=== PATIENT | male | born 1960 | race Caucasian/White ===

== ENCOUNTER 2018-08-19 16:45 | Inpatient (IN) | payer MEDICAID ==
[~2018-08-19] VITALS: Ht 177.8 cm; Wt 59.5 kg
--- NOTE | 2018-08-19 17:17 | NUR ---
PT CAME FROM DIALYSIS WITH A CLOT IN HIS DIALYSIS CATHETER. PT GETS DIALYSIS MON AND FRI. HIS LAST DIALYSIS WAS ON WED. DENIES ANY PAIN, SOB. SKIN PINK WARM AND DRY RESPS EVEN AND NON LABORED NO ACUTE DISTRESS. PLACED ON CERTIFIED LOW VISION THERAPIST. CALL GOULD IN REACH.
--- NOTE | 2018-08-19 17:30 | NUR ---
LAB TO BEDSIDE FOR BLOOD DRAW.
[2018-08-19 17:40] LABS: MONOCYTES # (AUTO) 0.5 /CMM (0.1-1.30); PLATELET COUNT (AUTO) 273 /CMM (150-450); WHITE BLOOD COUNT (AUTO) 5.4 K/uL (4.3-11.0)
[2018-08-19 17:44] LABS: BASOPHILS # (AUTO) 0.1 /CMM (0.0-0.2); BASOPHILS % (AUTO) 1.1 % (0.0-2.0); EOSINOPHILS % (AUTO) 4.2 % (0.0-6.0); HEMATOCRIT 37 % (39-51); HEMOGLOBIN 12.2 g/dL (13.5-17.5); LYMPHOCYTES # (AUTO) 1.1 /CMM (0.8-4.8); LYMPHOCYTES % (AUTO) 19.4 % (20.0-44.0); MEAN CORPUSCULAR HGB CONC 33 g/dl (31.0-36.0); MEAN CORPUSCULAR VOLUME 94 fL (80-96); MONOCYTES % (AUTO) 9.6 % (2.0-12.0); NEUTROPHILS # (AUTO) 3.5 /CMM (1.8-8.9); NEUTROPHILS % (AUTO) 65.7 % (43.0-81.0); RDW COEFFICIENT OF VARIATION 13.8 (11.5-15.0); RED BLOOD CELL COUNT(AUTO) 3.92 MIL/uL (4.5-6.0)
[2018-08-19 17:49] LABS: CALCIUM, SERUM 8.1 mg/dL (8.5-10.1); CREATININE 5.6 mg/dL (0.6-1.3)
[2018-08-19 17:54] LABS: INR 0.97 (0.85-1.15)
--- NOTE | 2018-08-19 17:55 | NUR ---
IV ATTEMPT X2 UNSUCCESSFUL. GENER RN TO BEDSIDE FOR IV START
[2018-08-19] MEDS ORDERED: AMLO5TAB7 PO (18:03)
[2018-08-19] MEDS ORDERED: TRAM50TA2 PO (18:03)
[2018-08-19] MEDS ORDERED: HYDR-4077 PO (18:03)
[2018-08-19] MEDS ORDERED: VENL37.55 PO (18:03)
[2018-08-19] MEDS ORDERED: DOCU-141 PO (18:03)
[2018-08-19] MEDS ORDERED: SEVE800T7 PO (18:03)
[2018-08-19] MEDS ORDERED: GABA-534 PO (18:03)
[2018-08-19] MEDS ORDERED: ATOR40TA PO (18:03)
[2018-08-19] MEDS ORDERED: ASPI-1152 PO (18:03)
[2018-08-19] MEDS ORDERED: VENL37.510 PO (18:03)
[2018-08-19] MEDS ORDERED: SENN-167 PO (18:03)
[2018-08-19] MEDS ORDERED: CARV12.52 PO (18:03)
[2018-08-19] MEDS ORDERED: PANT40TA2 PO (18:03)
[2018-08-19] MEDS ORDERED: INSU100V7 SQ (18:11)
--- NOTE | 2018-08-19 18:24 | NUR ---
MD AWARE OF PT DIFFICULT IV ACCESS. PER MD NO IV ACCESS REQUIRED AT THIS TIME.
--- NOTE | 2018-08-19 18:24 | NUR ---
DR. MSOHE NYE.
--- NOTE | 2018-08-19 19:35 | NUR ---
SPOKE TO DR. KENDALL MESA WITH ADDITIONAL ORDERS RECEIVED. AWAITING BED AVAILABILITY FOR PT ADMISSION.
--- NOTE | 2018-08-19 20:47 | NUR ---
PT ASSIGNED TO 325-1
--- NOTE | 2018-08-19 21:03 | NUR ---
REPORT CALLED TO M/S CHARISSE CASTANEDA. WILL TRANSPORT PT TO ROOM 325-1.
[2018-08-19 21:30] VITALS: BP 129/94
[2018-08-19 21:38] VITALS: BP 129/94
[2018-08-19] MEDS ORDERED: TRAMADOL HCL 50 MG TABLET PO PRN (23:00)
[2018-08-19] MEDS: CARVEDILOL 12.5 MG TABLET PO SCH (23:50)
[2018-08-19] MEDS: ATORVASTATIN 40 MG TABLET PO SCH (23:51)
[2018-08-19] MEDS: SEVELAMER CARBONATE 800 MG TABLET PO SCH (23:51)
[2018-08-19] MEDS: hydrALAZINE HCL 25 MG TABLET PO SCH (23:52)
[2018-08-19] MEDS: INSULIN GLARGINE, 100 UNIT/ML CARTRIDGE SQ SCH (23:56)
[2018-08-20] VITALS (13 sets, daily range): BP systolic 100–132; BP diastolic 67–89
[2018-08-20] MEDS: hydrALAZINE HCL 25 MG TABLET PO SCH ×3 (05:00→22:15)
--- NOTE | 2018-08-20 05:40 | NUR ---
ENDING NOTES AWAKE AND ALERT NO C/O THIS 12 HOURS. AV SHUNT LEFT UPPER ARM PALPABLE THRILL AUDIBLE THRILL RIGHT C/W DRESSING AV SHUNT CDI. [facility]
--- NOTE | 2018-08-20 07:56 | NUR ---
MS RN NOTES PATIENT RECEIVED RESTING INSIDE ROOM. SLEEPING, EASILY AROUSABLE THROUGH VERBAL AND TACTILE STIMULI. BREATHING EVEN AND UNLABORED. NO SOB OR ACUTE DISTRESS NOTED. DENIES ANY PAIN OR DISCOMFORT. IV INTACT AND PATENT. PATIENT NPO STATUS, AWARE AND VERBALIZED UNDERSTANDING. WILL CONTINUE TO MONITOR. BED LOCKED AND IN LOW POSITION. BILATERAL UPPER SIDE RAILS UP AND LOCKED. CALL LIGHT WITHIN EASY REACH
[2018-08-20] MEDS: CARVEDILOL 12.5 MG TABLET PO SCH ×2 (08:00→18:00)
[2018-08-20] MEDS: SEVELAMER CARBONATE 800 MG TABLET PO SCH ×3 (08:00→18:02)
[2018-08-20] MEDS ORDERED: TRAMADOL HCL 50 MG TABLET PO PRN (08:30)
[2018-08-20] MEDS: PANTOPRAZOLE 40 MG TABLET.DR PO SCH (08:30)
[2018-08-20] MEDS ORDERED: CARVEDILOL 12.5 MG TABLET PO SCH (09:00)
[2018-08-20] MEDS: AMLODIPINE BESYLATE 5 MG TABLET PO SCH (09:00)
[2018-08-20] MEDS: GABAPENTIN 300 MG CAPSULE PO SCH ×3 (09:00→18:02)
[2018-08-20] MEDS: DOCUSATE SODIUM 100 MG CAPSULE PO SCH (09:00)
[2018-08-20] MEDS: VENLAFAXINE XR 37.5 MG CAP.SR.24H PO SCH (09:00)
[2018-08-20] MEDS: ASPIRIN EC 81 MG TABLET.DR PO SCH (09:00)
[2018-08-20] MEDS ORDERED: IV D5/ 0.9% NACL 1,000 ML IV PRN (11:30)
[2018-08-20] MEDS ORDERED: INSULIN REGULAR, HUMAN 100 UNIT/ML 3 ML VIAL SQ PRN (11:30)
[2018-08-20] MEDS ORDERED: DEXTROSE 50%-WATER 50 ML DISP.SYRIN IV PRN (11:30)
[2018-08-20] MEDS ORDERED: HYDROCODONE/APAP 5/325MG 1 EACH TABLET PO PRN (11:30)
[2018-08-20 11:36] LABS: CALCIUM, SERUM 8.6 mg/dL (8.5-10.1); CREATININE 5.8 mg/dL (0.6-1.3)
[2018-08-20 11:49] LABS: BASOPHILS # (AUTO) 0.1 /CMM (0.0-0.2); BASOPHILS % (AUTO) 1.6 % (0.0-2.0); EOSINOPHILS % (AUTO) 4.2 % (0.0-6.0); HEMATOCRIT 35 % (39-51); HEMOGLOBIN 11.3 g/dL (13.5-17.5); LYMPHOCYTES % (AUTO) 18.1 % (20.0-44.0); MEAN CORPUSCULAR HGB CONC 33 g/dl (31.0-36.0); MEAN CORPUSCULAR VOLUME 95 fL (80-96); MONOCYTES # (AUTO) 0.5 /CMM (0.1-1.30); MONOCYTES % (AUTO) 9.3 % (2.0-12.0); NEUTROPHILS # (AUTO) 3.6 /CMM (1.8-8.9); NEUTROPHILS % (AUTO) 66.8 % (43.0-81.0); PLATELET COUNT (AUTO) 260 /CMM (150-450); RDW COEFFICIENT OF VARIATION 14.7 (11.5-15.0); RED BLOOD CELL COUNT(AUTO) 3.65 MIL/uL (4.5-6.0); WHITE BLOOD COUNT (AUTO) 5.3 K/uL (4.3-11.0)
[2018-08-20 11:59] LABS: INR 1.03 (0.87-1.13)
[2018-08-20] MEDS: BLOOD SUGAR DIAGNOSTIC 1 EACH STRIP IN SCH ×3 (12:33→22:29)
[2018-08-20] MEDS ORDERED: LIDOCAINE 1% INJ 50 ML MDV IJ ONE (12:34)
[2018-08-20] MEDS ORDERED: HEPARIN SODIUM, PORCINE 1,000 UNIT/ML VIAL ONE (12:34)
[2018-08-20] MEDS ORDERED: ANESTHESIA TRAY IN PYXIS 1 EA TRAY MC ONE (12:35)
[2018-08-20] MEDS ORDERED: FENTANYL PF 100MCG/2ML AMPUL ONE (12:45)
[2018-08-20] MEDS ORDERED: METOCLOPRAMIDE HCL 10 MG/2 ML VIAL ONE (12:46)
[2018-08-20] MEDS ORDERED: SUCCINYLCHOLINE CHLORIDE 20 MG/ML VIAL ONE (12:46)
[2018-08-20] MEDS ORDERED: hydrALAZINE HCL 50 MG TABLET PO SCH (13:00)
[2018-08-20] MEDS ORDERED: SEVELAMER CARBONATE 800 MG TABLET PO SCH (13:00)
--- NOTE | 2018-08-20 15:20 | NUR ---
MS RN NOTES PATIENT BACK FROM SURGERY. S/P PERMACATH REPLACEMENT ON RIGHT CHEST WALL BY DR. PRINGLE. WITH NEW ORDERS TO START RENAL DIET. PATIENT ALERT AND ORIENTED. VERBALLY RESPONSIVE AND RESPONDS TO VERBAL AND TACTILE STIMULI. IV INTACT AND PATENT. VERBALIZES UNDERSTANDING WITH TREATMENT PLAN AND MEDICATION REGIME. WILL CONTINUE TO MONITOR
--- NOTE | 2018-08-20 17:30 | NUR ---
MS RN NOTES D5NS IVF DISCONTINUED PER DR. KENDALL MESA ORDER TO DC IVF AFTER PERMACATH REPLACEMENT. PATIENT ABLE TO TOLERATE PO FOOD AND LIQUIDS. WILL CONTINUE TO MONITOR
[2018-08-20] MEDS ORDERED: SENNOSIDES 8.6 MG TABLET PO SCH (18:00)
[2018-08-20] MEDS ORDERED: ATORVASTATIN 40 MG TABLET PO SCH (18:00)
--- NOTE | 2018-08-20 18:15 | NUR ---
MS RN NOTES PATIENT FOR HD TODAY PER DR. KENDALL MESA. CARVEDILOL HELD. WILL CONTINUE TO MONITOR
--- NOTE | 2018-08-20 18:49 | NUR ---
MS RN NOTES PATIENT RESTING INSIDE ROOM. AWAKE, ALERT AND ORIENTED. VERBALLY RESPONSIVE AND RESPONDS TO VERBAL AND TACTILE STIMULI. BREATHING EVEN AND UNLABORED. NO SOB OR ACUTE DISTRESS NOTED. NO CHANGES IN LOC NOTED. PATIENT DENIES ANY PAIN OR DISCOMFORT. RCW PERMACATH IN PLACE. DRESSING INTACT. AWAITING FOR HD THIS PM. WILL ENDORSE TO INCOMING SHIFT FOR CHAVA. BED LOCKED AND IN LOW POSITION. BILATERAL UPPER SIDE RAILS UP AND LOCKED. CALL LIGHT WITHIN EASY REACH
--- NOTE | 2018-08-20 19:15 | NUR ---
RN OPENING NOTES PT AWAKE AND ALERT RESTING IN BED. PT CURRENTLY UNDERGOING HD. DIALYSIS NURSE AT BED SIDE. NO COMPLAINTS OF PAIN, SOB OR DISTRESS AT THIS TIME. S/P RIGHT CHEST WALL PERMACATH REPLACEMENT TODAY. PT HAS A RIGHT HAND #20 IV INTACT AND PATENT. SAFETY PRECAUTIONS IN PLACE, BED IN LOWEST LOCKED POSITION, X2 SIDE RAILS UP AND CALL LIGHT WITHIN REACH. WILL CONTINUE TO MONITOR.
[2018-08-20] MEDS ORDERED: INSULIN GLARGINE HUM REC ANLOG 8 UNIT SQ SCH (22:00)
[2018-08-20] MEDS: ATORVASTATIN 40 MG TABLET PO SCH (22:28)
[2018-08-20] MEDS: INSULIN GLARGINE, 100 UNIT/ML CARTRIDGE SQ SCH (22:29)
--- NOTE | 2018-08-20 22:30 | NUR ---
RN NOTES PT HD COMPLETE AT 2205. VITAL SIGNS WITHIN NORMAL LIMITS PT REFUSED APRESOLINE EXPLAINED TO THE PATIENT THE IMPORTANCE OF MEDICATION COMPLIANCE. PT STATED THAT THE DOES NOT WANT TO TAKE HEART MEDICATION AFTER DIALYSIS. PT BLOOD SUGAR 100. HELD 8 UNITS OF LANTUS.
--- NOTE | 2018-08-20 23:34 | NUR ---
RN NOTES REPORT GIVEN FOR CONTINUITY OF CARE.
[2018-08-21] MEDS: hydrALAZINE HCL 25 MG TABLET PO SCH ×2 (05:00→12:09)
--- NOTE | 2018-08-21 05:31 | NUR ---
PT REFUSED SCHEDULED HYDRALAZINE . BP IS 135/90. WILL CONTINUE TO MONITOR
[2018-08-21] MEDS: BLOOD SUGAR DIAGNOSTIC 1 EACH STRIP IN SCH ×2 (06:29→12:08)
--- NOTE | 2018-08-21 06:57 | NUR ---
MS RN CLOSING NOTES PT AWAKE AND ALERT RESTING IN BED. NO COMPLAINTS OF PAIN, SOB OR DISTRESS AT THIS TIME. S/P RIGHT CHEST WALL PERMACATH REPLACEMENT YESTERDAY. PT HAS A RIGHT HAND #20 IV INTACT AND PATENT. SAFETY PRECAUTIONS IN PLACE, BED IN LOWEST LOCKED POSITION, X2 SIDE RAILS UP AND CALL LIGHT WITHIN REACH.WILL ENDORSE TO NEXT SHIFT FOR CHAVA.
--- NOTE | 2018-08-21 07:47 | NUR ---
MS RN NOTES PATIENT RECEIVED RESTING INSIDE ROOM. AWAKE, ALERT AND ORIENTED. VERBALLY RESPONSIVE AND RESPONDS TO VERBAL AND TACTILE STIMULI. BREATHING EVEN AND UNLABORED. NO SOB OR ACUTE DISTRESS NOTED AT THIS TIME. PATIENT CALM AND RELAXED. DENIES ANY PAIN OR DISCOMFORT. WILL CONTINUE TO MONITOR. BED LOCKED AND IN LOW POSITION. BILATERAL UPPER SIDE RAILS UP AND LOCKED. CALL LIGHT WITHIN EASY REACH
[2018-08-21 08:00] VITALS: BP 111/74
[2018-08-21] MEDS: CARVEDILOL 12.5 MG TABLET PO SCH (08:00)
--- NOTE | 2018-08-21 08:30 | NUR ---
MS RN NOTES NOTED WITH DRY BLOOD RESIDUE ON RIGHT CHEST WALL PERMACATH. DIALYSIS NURSE CRISSY PRESENT AT UNIT AND MADE AWARE, DRESSING CHANGED BY LUMBER SORTER MACHINE. NO ACTIVE BLEEDING NOTED. DRESSING SECURE. WILL CONTINUE TO MONITOR
[2018-08-21] MEDS: ASPIRIN EC 81 MG TABLET.DR PO SCH (08:36)
[2018-08-21] MEDS: VENLAFAXINE XR 37.5 MG CAP.SR.24H PO SCH (08:36)
[2018-08-21] MEDS: GABAPENTIN 300 MG CAPSULE PO SCH ×2 (08:36→12:09)
[2018-08-21] MEDS: SEVELAMER CARBONATE 800 MG TABLET PO SCH ×2 (08:36→12:09)
[2018-08-21] MEDS: DOCUSATE SODIUM 100 MG CAPSULE PO SCH (08:36)
[2018-08-21] MEDS: PANTOPRAZOLE 40 MG TABLET.DR PO SCH (08:36)
[2018-08-21] MEDS: AMLODIPINE BESYLATE 5 MG TABLET PO SCH (08:37)
[2018-08-21 09:38] LABS: BASOPHILS # (AUTO) 0.1 /CMM (0.0-0.2); BASOPHILS % (AUTO) 0.9 % (0.0-2.0); EOSINOPHILS % (AUTO) 2.9 % (0.0-6.0); HEMATOCRIT 38 % (39-51); HEMOGLOBIN 12.3 g/dL (13.5-17.5); LYMPHOCYTES # (AUTO) 0.8 /CMM (0.8-4.8); LYMPHOCYTES % (AUTO) 11.7 % (20.0-44.0); MEAN CORPUSCULAR HGB CONC 33 g/dl (31.0-36.0); MEAN CORPUSCULAR VOLUME 95 fL (80-96); MONOCYTES # (AUTO) 0.5 /CMM (0.1-1.30); NEUTROPHILS # (AUTO) 4.9 /CMM (1.8-8.9); NEUTROPHILS % (AUTO) 76.5 % (43.0-81.0); PLATELET COUNT (AUTO) 228 /CMM (150-450); RDW COEFFICIENT OF VARIATION 14.6 (11.5-15.0); RED BLOOD CELL COUNT(AUTO) 3.98 MIL/uL (4.5-6.0); WHITE BLOOD COUNT (AUTO) 6.4 K/uL (4.3-11.0)
[2018-08-21 09:53] LABS: CALCIUM, SERUM 8.6 mg/dL (8.5-10.1); CREATININE 4.2 mg/dL (0.6-1.3); MAGNESIUM 1.9 mg/dL (1.8-2.4); PHOSPHORUS 3.9 mg/dL (2.5-4.9)
[2018-08-21 12:09] VITALS: BP 125/70
--- NOTE | 2018-08-21 13:32 | NUR ---
MS RN NOTES PATIENT FOR DISCHARGE HOME TODAY. DISCHARGE INSTRUCTIONS AND EDUCATION PROVIDED TO PATIENT AND VERBALIZED UNDERSTANDING. ALL BELONGING COMPLETE ON DISCHARGE, NO REPORT OF MISSING INVENTORY. IV REMOVED WITH MINIMAL BLEEDING NOTED. PATIENT LEFT UNIT AT 1330 BY PERSONAL WHEELCHAIR. ACCOMPANIED BY SIGNIFICANT OTHER. ASSISTED WITH DISCHARGE TO PARKING LOT AND OUT OF HOSPITAL. PATIENT LEFT IN STABLE CONDITION. NO SOB OR ACUTE DISTRESS. NO CHANGES IN LOC NOTED. MD MADE AWARE OF DISCHARGE.
== END 2018-08-21 13:30 | disposition home or self-care (01) | DRG 466 ==
LOC: ER 16:49 → MED 21:32
PROVIDERS: ADMIT Internal Medicine Nephrology; ATTEND Internal Medicine Nephrology
PROC: 0J2SXYZ Change Other Device in Head and Neck Subcutaneous Tissue and Fascia, External Approach (ICD-10-PCS; principal; 2018-08-19)
DX: T82.41XA Breakdown (mechanical) of vascular dialysis catheter, initial encounter (principal); I12.0 Hypertensive chronic kidney disease with stage 5 chronic kidney disease or end stage renal disease; E11.22 Type 2 diabetes mellitus with diabetic chronic kidney disease; N18.6 End stage renal disease; Z99.2 Dependence on renal dialysis; Z89.612 Acquired absence of left leg above knee; Z89.411 Acquired absence of right great toe; D64.9 Anemia, unspecified
CPT/HCPCS: 36415; 71045-TC; 80048-TC; 82962-TC; 83735-TC; 84100-TC; 85025-TC; 85610-TC; 85730-TC; 87081-TC; 90935-TC; A4606; A6402; C1750; C1769; J0330; J1644; J1815; J2405; J2704; J2765; J3010; J3490; J7042; Z7610

== ENCOUNTER 2019-02-20 16:00 | Inpatient (IN) | payer MEDICAID ==
[~2019-02-20] VITALS: Ht 160 cm; Wt 59.9 kg
[~2019-02-20 16:00] MED LIST: AMLO5TAB9 PO; ASPI-1152 PO; ATOR40TA PO; CARV12.52 PO; DOCU-141 PO; GABA-534 PO; HYDR-4077 PO; INSU100V7 SQ; PANT40TA2 PO; SENN-168 PO; SEVE800T7 PO; TRAM50TA2 PO; VENL37.55 PO
[2019-02-20] MEDS ORDERED: NITROGLYCERIN 0.4 MG/TAB BOTTLE ONE (16:28)
[2019-02-20] MEDS ORDERED: ASPIRIN 325 MG TABLET ONE (16:28)
[2019-02-20] MEDS ORDERED: NITROGLYCERIN 0.4 MG/TAB BOTTLE SL ONE (16:30)
[2019-02-20] MEDS ORDERED: ASPIRIN 325 MG TABLET PO ONE (16:30)
[2019-02-20 16:33] LABS: BASOPHILS # (AUTO) 0.1 /CMM (0.0-0.2); BASOPHILS % (AUTO) 1.5 % (0.0-2.0); EOSINOPHILS % (AUTO) 2.5 % (0.0-6.0); HEMATOCRIT 36 % (39-51); HEMOGLOBIN 11.7 g/dL (13.5-17.5); LYMPHOCYTES % (AUTO) 17.5 % (20.0-44.0); MEAN CORPUSCULAR HGB CONC 32 g/dl (31.0-36.0); MEAN CORPUSCULAR VOLUME 104 fL (80-96); MONOCYTES # (AUTO) 0.7 /CMM (0.1-1.30); MONOCYTES % (AUTO) 11.3 % (2.0-12.0); NEUTROPHILS # (AUTO) 3.9 /CMM (1.8-8.9); NEUTROPHILS % (AUTO) 67.2 % (43.0-81.0); PLATELET COUNT (AUTO) 129 /CMM (150-450); RED BLOOD CELL COUNT(AUTO) 3.51 MIL/uL (4.5-6.0); WHITE BLOOD COUNT (AUTO) 5.8 K/uL (4.3-11.0)
[2019-02-20 16:43] LABS: CALCIUM, SERUM 8.8 mg/dL (8.5-10.1); CREATININE 4.1 mg/dL (0.6-1.3); POTASSIUM 4.2 mmol/L (3.5-5.1)
[2019-02-20 16:58] LABS: BILIRUBIN,DIRECT 0.7 mg/dL (0.0-0.2); BILIRUBIN,TOTAL 1.2 mg/dL (0.2-1.0); TOTAL PROTEIN, SERUM 7.5 g/dL (6.4-8.2)
--- NOTE | 2019-02-20 17:02 | NUR ---
YURI FROM [facility], SENT BY MD AFTER DIALYSIS FOR SOB, BELOW L KNEE AMPUTEE, RIGHT CHESTDIALYSIS PORT
--- NOTE | 2019-02-20 17:51 | NUR ---
CALLED [facility] [phone] MARY MOFFETT. CONSTRUCTION ECONOMIST IS DR. PULIDO.
--- NOTE | 2019-02-20 18:27 | NUR ---
GOT BED 320-1 THANK YOU.
--- NOTE | 2019-02-20 18:40 | NUR ---
REPORT GIVEN TO KELLI MCQUEEN. PT AWAITING TRANSFER TO FLOOR.
[2019-02-20 20:00] VITALS: BP 123/52
--- NOTE | 2019-02-20 23:37 | NUR ---
SENIOR SUPPORT ANALYST OPENING NOTES RECEIVED PT IN BED, AWAKE ALERT ORIENTEDX3, BREATHING EVEN AND UNLABORED ON ROOM AIR, NO SOB COUGH OR CONGESTION AT THE MOMENT. REPORTS CHEST PAIN AT A 1/10, NO OTHER COMPLAINT OF PAIN OR DISCOMFORT AT THE TIME. IV ACCESS ON THE R AC 20G SL PATENT AND FLUSHING. LEFT SUBCLAVIAN HD CATH IN PLACE. PRINTING PRESSMAN IN PLACE, SR IN THE 80S. BED IN LOWEST LOCKED POSITION, CALL LIGHT WITHIN REACH AT ALL TIMES, WILL CONTINUE TO MONITOR FREQUENTLY
[2019-02-21] VITALS (7 sets, daily range): BP systolic 123–131; BP diastolic 73–82
[2019-02-21] MEDS: hydrALAZINE HCL 50 MG TABLET PO SCH ×3 (04:35→20:20)
[2019-02-21] MEDS: TRAMADOL HCL 50 MG TABLET PO PRN (04:35)
--- NOTE | 2019-02-21 06:07 | NUR ---
FURNITURE ASSEMBLER AND INSTALLER CLOSING NOTES PT REMAINS IN BED, AWAKE ALERT ORIENTED X4, COMPLAINING OF DISCOMFORT WITH BREATHING, NO CHEST PAIN, SATING AT 98 ON ROOM AIR, REFUSING NC, REPOSITIONED FOR COMFORT. MH TEACHER IN PLACE, SR 80S. IV ACCESS ON THE R AC 20G SL PATENT AND FLUSHING. BED IN LOWEST LOCKED POSITION, CALL LIGHT WITHIN REACH AT ALL TIMES, WILL ENDORSE TO DAY NURSE FOR CHAVA
[2019-02-21 06:13] LABS: BASOPHILS # (AUTO) 0.1 /CMM (0.0-0.2); BASOPHILS % (AUTO) 1.5 % (0.0-2.0); EOSINOPHILS % (AUTO) 2.9 % (0.0-6.0); HEMATOCRIT 36 % (39-51); HEMOGLOBIN 11.6 g/dL (13.5-17.5); LYMPHOCYTES # (AUTO) 0.9 /CMM (0.8-4.8); LYMPHOCYTES % (AUTO) 17.1 % (20.0-44.0); MEAN CORPUSCULAR HGB CONC 32 g/dl (31.0-36.0); MEAN CORPUSCULAR VOLUME 103 fL (80-96); MONOCYTES # (AUTO) 0.6 /CMM (0.1-1.30); MONOCYTES % (AUTO) 11.2 % (2.0-12.0); NEUTROPHILS # (AUTO) 3.4 /CMM (1.8-8.9); NEUTROPHILS % (AUTO) 67.3 % (43.0-81.0); PLATELET COUNT (AUTO) 124 /CMM (150-450); RED BLOOD CELL COUNT(AUTO) 3.47 MIL/uL (4.5-6.0)
[2019-02-21 06:55] LABS: CREATININE 4.8 mg/dL (0.6-1.3); POTASSIUM 5.3 mmol/L (3.5-5.1)
[2019-02-21] MEDS: BLOOD SUGAR DIAGNOSTIC 1 EACH STRIP IN SCH ×4 (06:56→21:26)
--- NOTE | 2019-02-21 07:33 | NUR ---
HD AT BEDSIDE
[2019-02-21] MEDS: PANTOPRAZOLE 40 MG TABLET.DR PO SCH (08:24)
[2019-02-21] MEDS: DOCUSATE SODIUM 100 MG CAPSULE PO SCH (08:25)
[2019-02-21] MEDS: VENLAFAXINE XR 37.5 MG CAP.SR.24H PO SCH (08:25)
[2019-02-21] MEDS: CARVEDILOL 12.5 MG TABLET PO SCH ×2 (08:25→21:00)
[2019-02-21] MEDS: GABAPENTIN 300 MG CAPSULE PO SCH ×3 (08:25→17:39)
[2019-02-21] MEDS: ASPIRIN EC 81 MG TABLET.DR PO SCH (08:25)
[2019-02-21] MEDS: AMLODIPINE BESYLATE 5 MG TABLET PO SCH (08:26)
[2019-02-21] MEDS: SEVELAMER CARBONATE 800 MG TABLET PO SCH ×3 (08:26→17:39)
--- NOTE | 2019-02-21 08:27 | NUR ---
HD OUTPUT 2000 ML. PT A/O X3 , EATING BREAKFAST. VS ARE STABLE AND WITHIN NORMAL RANGE.
--- NOTE | 2019-02-21 09:52 | NUR ---
THORACENTESIS AT BEDSIDE .
--- NOTE | 2019-02-21 10:21 | NUR ---
PLURAL FLUID 1550 ML. AFTER THORACENTESIS
[2019-02-21 10:58] LABS: CHOLESTEROL 105 mg/dL (<200); HDL CHOLESTEROL 37 mg/dL (40-60); LDL 57 mg/dL (0-99); TRIGLYCERIDES 90 mg/dL (30-150)
--- NOTE | 2019-02-21 11:44 | NUR ---
PATIENT REFUSED ACCU-CHEK : RISKS AND BENEFITS EXPLAINED
[2019-02-21] MEDS: SENNOSIDES 8.6 MG TABLET PO SCH (17:39)
[2019-02-21] MEDS ORDERED: ATORVASTATIN 40 MG TABLET PO SCH (18:00)
--- NOTE | 2019-02-21 18:53 | NUR ---
PATIENT RESTING IN BED, BREATHING UNLABORED AND EVEN ,ON ROOM AIR TOLERATING WELL. ALL NEEDS ATTENDED, PT KEPT CLEAN AND DRY.IV H/L TO R AC [address] G[address] IN PL[address] , CALL LIGHT IN PLACE.
--- NOTE | 2019-02-21 19:30 | NUR ---
MS/RN OPENING NOTES PT RECEIVED RESTING COMFORTABLY IN BED. OPENS EYES TO NAME. ON ROOM AIR, BREATHING EVEN AND UNLABORED. DENIES SOB AND PAIN AT THIS TIME. HD CATH NOTED TO LCW WITH DRESSING C/D/I. IV TO RAC PATENT AND INTACT. NO NEEDS EXPRESSED AT THIS TIME. BED IN LOW/LOCKED POSITION WITH CALL LIGHT IN REACH. BILATERAL UPPER SIDE RAILS IN PLACE AND HOB ELEVATED. WILL CONTINUE TO MONITOR
[2019-02-21] MEDS: INSULIN GLARGINE, 100 UNIT/ML CARTRIDGE SQ SCH (21:30)
--- NOTE | 2019-02-21 21:33 | NUR ---
MS/RN NOTES PT REFUSED SCHEDULED COREG AND LANTUS. PT STATES HE DOESNT HAVE MUCH OF AN APPETITE AND REFUSING SNACKS AT THIS TIME. EXPLAINED RISKS/BENEFITS OF BOTH MEDICATIONS X3 AND PT STILL REFUSING. HE "JUST WANTS TO SLEEP". BP= 115/77, HR 73 BGL= 145
--- NOTE | 2019-02-22 | NUR ---
MS/RN NOTES PT ROUNDING DONE. PT ASLEEP, BREATHING EVEN AND UNLABORED. NO S/S OF ACUTE DISTRESS.
[2019-02-22] MEDS: hydrALAZINE HCL 50 MG TABLET PO SCH (05:00)
--- NOTE | 2019-02-22 06:01 | NUR ---
MS/RN NOTES HELD 0500 . BP 107/65, HR 74 PT SCHEDULED FOR HEMODIALYSIS THIS MORNING.
[2019-02-22] MEDS: PANTOPRAZOLE 40 MG TABLET.DR PO SCH (06:56)
[2019-02-22] MEDS: BLOOD SUGAR DIAGNOSTIC 1 EACH STRIP IN SCH ×4 (06:56→21:04)
--- NOTE | 2019-02-22 07:10 | NUR ---
MS/RN CLOSING NOTES PT RESTING COMFORTABLY IN BED. OPENS EYES TO NAME. ON ROOM AIR, BREATHING EVEN AND UNLABORED. DENIES SOB AND PAIN AT THIS TIME. IV TO RAC PATENT AND INTACT. LEFT HD CATH IN PLACE WITH DRESSING C/D/I. PLAN FOR HD AT 0800 PER HD NURSE. NO SIGNIFICANT CHANGES OVERNIGHT. SLEPT WELL. ALL NEEDS MET. BED REMAINS IN LOW/LOCKED POSITION WITH CALL LIGHT IN REACH. HOB ELEVATED. BILATERAL UPPER SIDE RAILS IN PLACE. ENDORSED TO DAY SHIFT RN CHAVA.
--- NOTE | 2019-02-22 07:44 | NUR ---
MS RN OPENING NOTES RECEIVE PT IN BED, AWAKE, A/O X2-3. PT TOLERATING RA, WITH NO ACUTE RESPIRATORY DISTRESS. PT DENIES PAIN. PT ALSO DENIES ANY QUESTIONS OR CONCERNS AT THIS MOMENT. PIV TO RAC G20 SL, FLUSHED WITH NS, INTACT AND OPERATIONAL. HD CATH TO LEFT CHEST NOTED WELL, AND SCHEDULED DIALYSIS TO START AT 0800 TODAY. HOB ELEVATED. KEPT CALL LIGHT AND FLUID WITHIN REACH. WILL CONTINUE TO MONITOR.
[2019-02-22 08:00] VITALS: BP 119/61
[2019-02-22] MEDS: SEVELAMER CARBONATE 800 MG TABLET PO SCH ×3 (08:00→18:08)
[2019-02-22] MEDS: TRAMADOL HCL 50 MG TABLET PO PRN (08:22)
[2019-02-22] MEDS: VENLAFAXINE XR 37.5 MG CAP.SR.24H PO SCH (09:00)
[2019-02-22] MEDS: CARVEDILOL 12.5 MG TABLET PO SCH ×2 (09:00→21:03)
[2019-02-22] MEDS: AMLODIPINE BESYLATE 5 MG TABLET PO SCH (09:00)
[2019-02-22] MEDS: DOCUSATE SODIUM 100 MG CAPSULE PO SCH (09:00)
[2019-02-22] MEDS: ASPIRIN EC 81 MG TABLET.DR PO SCH (09:01)
[2019-02-22] MEDS: GABAPENTIN 300 MG CAPSULE PO SCH ×3 (09:01→16:15)
--- NOTE | 2019-02-22 11:00 | NUR ---
MS RN NOTES PT HAD HD STARTED 08 AND ENDED 0. VS 102/78, HR 75, O2 SATURATION OF 99% AND OUTPUT OF 1000ML PER DIALYSIS NURSE. WILL CONTINUE TO MONITOR.
[2019-02-22 16:00] VITALS: BP 97/65
[2019-02-22] MEDS: SENNOSIDES 8.6 MG TABLET PO SCH (18:08)
--- NOTE | 2019-02-22 19:18 | NUR ---
MS RN CLOSING NOTES PT REMAINS IN BED, AWAKE, A/O X2-3. PT TOLERATING RA, WITH NO ACUTE RESPIRATORY DISTRESS. PT DENIES PAIN. PIV TO RAC G20 SL, FLUSHED WITH NS, INTACT AND OPERATIONAL. HD CATH TO LEFT CHEST NOTED; HD WAS DONE THIS MORNING WITH OUTPUT OF 1000ML. HOB ELEVATED. KEPT CALL LIGHT AND FLUID WITHIN REACH.PT'S BED KEPT IN LOWEST, LOCKED POSITION WITH SR X2. ENDORSED TO CHARGE MACHINE OPERATOR NURSE FOR CHAVA.
[2019-02-22 20:00] VITALS: BP 127/62
[2019-02-22] MEDS: INSULIN GLARGINE, 100 UNIT/ML CARTRIDGE SQ SCH (21:33)
[2019-02-23] MEDS: BLOOD SUGAR DIAGNOSTIC 1 EACH STRIP IN SCH ×4 (06:05→22:07)
--- NOTE | 2019-02-23 06:28 | NUR ---
MS RN NOTES AWAKE & RESPONSIVE. NOT IN ANY DISTRESS. NO SOB NOTED. DENIES ANY PAIN OR DISCOMFORT AT THIS TIME. WITH IV-HL PATENT & INTACT. AM CARE DONE. MONITORED ACCORDINGLY. CALL LIGHT WITHIN REACH. BED IN LOWEST POSITION. SR UP X2 FOR SAFETY. WILL ENDORSE TO NEXT SHIFT.
--- NOTE | 2019-02-23 07:35 | NUR ---
MS RN OPENING NOTES RECEIVED PT IN BED, INTERMITTENTLY DOZING OFF, A/O X2-3. PT TOLERATING RA, WITH NO ACUTE RESPIRATORY DISTRESS. PT DENIES PAIN. PT ALSO DENIES ANY QUESTIONS OR CONCERNS AT THIS MOMENT. PIV TO RAC G20 SL, FLUSHED WITH NS, INTACT AND OPERATIONAL. HD CATH TO LEFT CHEST NOTED WELL, AND ON GOING HD AT THIS MOMENT. HOB ELEVATED. KEPT CALL LIGHT WITHIN REACH. PT'S BED KEPT IN LOWEST, LOCKED POSITION WITH SR X2. WILL CONTINUE PLAN OF CARE.
[2019-02-23 08:00] VITALS: BP 160/79
[2019-02-23 08:58] LABS: ABG OXYGEN SATURATION 89.6 % (92.0-98.5); ABG PCO2 46.8 mmHg (35.0-45.0); ABG PH 7.401 (7.350-7.450); ABG PO2 61.8 mmHg (75.0-100.0); AaDO2 31.9 mmHg; COHb 1.4 % (0.5-1.5); MetHb 0.7 % (0.0-1.5); O2Hb 87.7 % (94.0-97.0); SITE, ABG Left Brachial; VENT MODE, BG ROOM AIR
[2019-02-23] MEDS: CARVEDILOL 12.5 MG TABLET PO SCH ×2 (09:00→20:56)
[2019-02-23] MEDS: ASPIRIN EC 81 MG TABLET.DR PO SCH (09:54)
[2019-02-23] MEDS: VENLAFAXINE XR 37.5 MG CAP.SR.24H PO SCH (09:54)
[2019-02-23] MEDS: PANTOPRAZOLE 40 MG TABLET.DR PO SCH (09:55)
[2019-02-23] MEDS: SEVELAMER CARBONATE 800 MG TABLET PO SCH ×3 (09:55→17:00)
[2019-02-23] MEDS: DOCUSATE SODIUM 100 MG CAPSULE PO SCH (09:55)
[2019-02-23] MEDS: GABAPENTIN 300 MG CAPSULE PO SCH ×3 (09:55→16:54)
--- NOTE | 2019-02-23 10:00 | NUR ---
MS RN NOTES PT HAD HD THIS MORNING STARTED 0600 AND ENDED AROUND 0830. WITH OUTPUT OF 1500ML.
[2019-02-23 16:00] VITALS: BP 123/73
--- NOTE | 2019-02-23 16:10 | NUR ---
MS RN NOTES PT HAD RIGHT SIDE THORACENTESIS US GUIDED. OUTPUT OF 1300ML. SENT PLURAL FLUID TO LAB FOR CYTOLOGY ANALYSIS.
[2019-02-23] MEDS: SENNOSIDES 8.6 MG TABLET PO SCH (17:00)
--- NOTE | 2019-02-23 18:53 | NUR ---
MS RN CLOSING NOTES PT REMAINS IN BED, INTERMITTENTLY DOZING OFF, A/O X2-3. PT TOLERATING RA, WITH NO ACUTE RESPIRATORY DISTRESS. PT DENIES PAIN. PIV TO RAC G20 SL, FLUSHED WITH NS, INTACT AND OPERATIONAL. HD CATH TO LEFT CHEST NOTED WELL. HOB ELEVATED. ALL NEEDS AND CARE PROVIDED. KEPT CALL LIGHT WITHIN REACH. PT'S BED KEPT IN LOWEST, LOCKED POSITION WITH SR X2. WILL ENDORSE TO INCOMING NIGHT NURSE FOR CHAVA.
[2019-02-23 20:00] VITALS: BP 123/70
[2019-02-23] MEDS: TRAMADOL HCL 50 MG TABLET PO PRN (20:56)
[2019-02-23] MEDS: INSULIN GLARGINE, 100 UNIT/ML CARTRIDGE SQ SCH (22:00)
[2019-02-24] MEDS: BLOOD SUGAR DIAGNOSTIC 1 EACH STRIP IN SCH ×2 (06:30→12:03)
--- NOTE | 2019-02-24 07:30 | NUR ---
MS RN Opening Notes Received patient asleep, resting in bed. Semi-Fowlers position, supine. Alert and oriented x3, able to make needs known. No complaints of shortness of breath or pain at this time. Respirations even and unlabored on room air, no acute distress noted. Peripheral IV to the right AC 20 gauge, intact, patent and saline locked. HD catheter to the left chest, intact and patent. Updated patient on current plan of care and safety measures. Safety and fall precautions in place: bed in lowest and locked position, side rails up x2, bed alarm on, call light and personal possessions within reach. Room well lit, no clutter on floor. Reminded patient of safety measures, verbalized understanding. Will continue to monitor and intervene as needed.
[2019-02-24 08:00] VITALS: BP_SYST 102; BP_SYST 95; BP_DIAS 55; BP_DIAS 65
[2019-02-24] MEDS: CARVEDILOL 12.5 MG TABLET PO SCH (08:20)
[2019-02-24] MEDS: DOCUSATE SODIUM 100 MG CAPSULE PO SCH (08:20)
[2019-02-24] MEDS: ASPIRIN EC 81 MG TABLET.DR PO SCH (08:22)
[2019-02-24] MEDS: SEVELAMER CARBONATE 800 MG TABLET PO SCH ×2 (08:22→12:03)
[2019-02-24] MEDS: PANTOPRAZOLE 40 MG TABLET.DR PO SCH (08:22)
[2019-02-24] MEDS: VENLAFAXINE XR 37.5 MG CAP.SR.24H PO SCH (08:22)
[2019-02-24] MEDS: GABAPENTIN 300 MG CAPSULE PO SCH ×2 (08:22→12:03)
[2019-02-24 09:30] VITALS: BP 102/65
[2019-02-24] MEDS ORDERED: LISINOPRIL (5MG) 5 MG TABLET PO SCH (09:30)
--- NOTE | 2019-02-24 15:00 | NUR ---
MS clerk to justice Notes Patient currently alert and oriented x3, able to make needs known. No complaints of shortness of breath or pain at this time. Respirations even and unlabored on room air, no acute distress noted. Peripheral IV to the right AC 20 gauge, removed with catheter tip intact. No redness, swelling or bleeding of the site noted. Transfers independently to [facility], wheelchair. Patient refused skin assessment, including photos. Attempted three times, patient states "I only have a few scabs on my legs, I am not doing it." Personal belongings and valuables discharged with patient, verified with signature on form. Personal wheelchair discharged with patient. Discharge instructions and Exitcare given to patient with present, all questions answered. Reviewed signs and symptoms of when to return for emergency care. Verbalized understanding and acknowledged via signature on form. ID band removed. Accompanied by staff member to front lobby of hospital, left via non-emergent transport services for assistance home.
== END 2019-02-24 15:10 | disposition home or self-care (01) | DRG 194 ==
LOC: ER 16:00 → TELE 18:30 → MED 02-21 10:36
PROVIDERS: ADMIT Internal Medicine Nephrology; ATTEND Internal Medicine Nephrology
PROC: 0W993ZZ Drainage of Right Pleural Cavity, Percutaneous Approach (ICD-10-PCS; principal; 2019-02-21)
PROC: 5A1D70Z Performance of Urinary Filtration, Intermittent, Less than 6 Hours Per Day (ICD-10-PCS; principal; 2019-02-21)
PROC: 5A1D70Z Performance of Urinary Filtration, Intermittent, Less than 6 Hours Per Day (ICD-10-PCS; 2019-02-22)
PROC: 5A1D70Z Performance of Urinary Filtration, Intermittent, Less than 6 Hours Per Day (ICD-10-PCS; 2019-02-23)
PROC: 0W993ZZ Drainage of Right Pleural Cavity, Percutaneous Approach (ICD-10-PCS; 2019-02-23)
PROC: 5A1D70Z Performance of Urinary Filtration, Intermittent, Less than 6 Hours Per Day (ICD-10-PCS; 2019-02-24)
DX: I13.2 Hypertensive heart and chronic kidney disease with heart failure and with stage 5 chronic kidney disease, or end stage renal disease (principal); I21.A1 Myocardial infarction type 2; J90 Pleural effusion, not elsewhere classified; E11.22 Type 2 diabetes mellitus with diabetic chronic kidney disease; N18.6 End stage renal disease; I27.20 Pulmonary hypertension, unspecified; Z89.612 Acquired absence of left leg above knee; Z99.2 Dependence on renal dialysis; I50.31 Acute diastolic (congestive) heart failure; J98.11 Atelectasis; I42.9 Cardiomyopathy, unspecified; Z79.82 Long term (current) use of aspirin; Z89.411 Acquired absence of right great toe; D64.9 Anemia, unspecified; E11.51 Type 2 diabetes mellitus with diabetic peripheral angiopathy without gangrene; Z79.4 Long term (current) use of insulin
CPT/HCPCS: 36415; 36600; 71045-TC; 76942-TC; 80048-TC; 80061-TC; 80076-TC; 82803-TC; 82962-TC; 83880; 84484-TC; 85025-TC; 85730-TC; 87070-TC; 87081-TC; 88305-TC; 88312-TC; 89051-TC; 90935-TC; 93307-TC; 93970-TC; A6402; G0378; J1815; J3490